=== PATIENT | male | born 1955 | race Caucasian/White ===

== ENCOUNTER 2021-01-04 09:57 | Emergency (ER) | payer OTHER ==
[2021-01-04] MEDS ORDERED: PREDNISONE 20MG20 MG PO (11:40)
[2021-01-04] MEDS ORDERED: REFRESH PLUS1 EACH EYELF (11:42)
[2021-01-04 12:50] LABS: ALBUMIN 4.2 g/dL (3.4-5.0); BILIRUBIN - TOTAL 0.5 mg/dL (0.2-1.0); BUN/CREAT RATIO (CALC) 21.2 RATIO; CREATININE 0.85 mg/dL (0.67-1.17); GLOBULIN (CALCULATION) 3.9 g/dL; POTASSIUM 4.3 mmol/L (3.5-5.1); TOTAL PROTEIN 8.1 g/dL (6.4-8.2)
== END 2021-01-04 13:04 | disposition home or self-care (01) ==
LOC: FER 09:57
PROVIDERS: Internal Medicine
DX: G51.0 Bell's palsy (principal)
CPT/HCPCS: 36415; 70450; 80053; J2930